=== PATIENT | female | born 1990 | race Caucasian/White ===

== ENCOUNTER → 2018-05-06 08:12 | Outpatient (CLI) | payer OTHER, SELFPAY ==
--- NOTE | 2018-05-06 | DI.MRI.S_ITS ---
PROCEDURE: MR KNEE LT WO CON INDICATIONS: LEFT KNEE PAIN TECHNIQUE: Noncontrast sagittal PD fast spin echo and T2 fast spin echo with fat saturation, sagittal 3-D FLASH with fat saturation; coronal T1 spin echo and PD fast spin echo with fat saturation, and axial PD fast spin echo with fat saturation through the knee. COMPARISON: None. FINDINGS: Image quality: Excellent. Menisci: The medial and lateral menisci demonstrate normal morphology and internal signal. The meniscal root ligaments appear intact. Cruciate ligaments: The anterior and posterior cruciate ligaments appear intact. Medial structures: The medial collateral ligament appears intact. The posterior oblique ligament, semimembranosus tendon insertions, oblique popliteal ligament, and meniscocapsular junction appear intact. Visualized portions of the pes anserinus tendons appear normal. No abnormal bursal fluid. Lateral structures: The lateral collateral ligament, long and short heads of the biceps femoris tendon appear intact. The popliteus tendon appears normal; the popliteofibular ligament appears intact. The posterosuperior and anteroinferior popliteomeniscal fascicles appear intact. The arcuate and fabellofibular ligaments appear intact, on either side of the lateral inferior geniculate artery. Iliotibial band appears normal. Anterior structures: Prepatellar subcutaneous soft tissue swelling and edema. The quadriceps and patellar tendons appear intact. Patellar alignment is normal. No femoral trochlear dysplasia or ventral trochlear prominence. No edema in the infrapatellar fat pad. Bones and cartilage: No bone marrow contusions or fractures. Within the medial and lateral compartments the articular cartilage appears intact. Within the patellofemoral compartment, there is minimal intrasubstance signal change of the cartilage overlying the medial patellar facet. There is minimal surface fraying of the lateral patellar facet articular cartilage. Joint space: Partially ruptured Lares cyst is present measuring 4.4 cm in a cephalocaudad dimension IMPRESSION: Prepatellar subcutaneous fluid/edema raising possibility of early or low-grade bursitis. Partially ruptured Lares cyst as above. Minimal patellofemoral chondromalacia. Dictated by: Guero Cabrales M.D. on 05/06/2018 at 9:07 Approved by: Guero Cabrales M.D. on 05/06/2018 at 9:13
== END ==
PROVIDERS: PCP Radiology Diagnostic Radiology; Visit Provider Radiology Diagnostic Radiology
DX: M25.562 Pain in left knee (principal); M66.0 Rupture of popliteal cyst; R60.0 Localized edema
CPT/HCPCS: 73721

== ENCOUNTER 2018-07-25 08:00 | Emergency (ER) | payer OTHER, SELFPAY ==
[2018-07-25 08:03] VITALS: BP 103/59; PULSE 67; RESP 16; O2SAT 100; BMI 21.6
--- NOTE | 2018-07-25 08:17 | ED.FEMALEGU ---
HPI - Female Genitourinary General Chief complaint: Urogenital-Female Stated complaint: back pain, urine cloudy Time Seen by Provider: 07/25/18 08:17 Source: patient Mode of arrival: ambulatory Limitations: no limitations History of Present Illness HPI Narrative: 28-year-old female otherwise healthy here for evaluation of right-sided flank pain. Patient states that has been going on for the past 2 or 3 days. No specific injury. No rashes. Has never had anything like this before. She states she does feel somewhat like she has urinary symptoms of dysuria. Has not tried anything for this prior to arrival Related Data Previous Rx's Medication Instructions Recorded sulfamethoxazole-trimethoprim 1 tab PO BID 14 Days #28 tab 07/25/18 [Bactrim DS] Allergies Allergy/AdvReac Type Severity Reaction Status Date / Time No Known Drug Allergies Allergy Verified 07/25/18 08:08 Review of Systems Constitutional Denies fever(s) and Denies headache(s) ENT Ears, Nose, Mouth, and Throat: Denies headache(s) Cardiovascular Denies chest pain and Denies dyspnea Respiratory Denies dyspnea Gastrointestinal Gastrointestinal: Denies abdominal pain, Denies nausea and Denies vomiting Genitourinary Reports dysuria, Reports flank pain and Denies vaginal discharge Musculoskeletal Denies myalgias and Denies arthralgias Integumentary/Breasts Denies rash Neurologic Denies headache(s) Hematologic/Lymphatic Comments: Not on anticoagulation PFSH Medical History Healthy adult (Acute) Surgical History No pertinent past surgical history (Acute) Social History Smoking Status: Never smoker Exam Initial Vital Signs Initial Vital Signs: Vital Signs Pulse Rate 67 07/25/18 08:03 Respiratory Rate 16 07/25/18 08:03 Blood Pressure 103/59 L 07/25/18 08:03 Pulse Oximetry 100 07/25/18 08:03 Const General: cooperative, healthy appearing, comfortable, well developed, well groomed and No acute distress Orientation: alert, awake and oriented x3 HENMT Head: normal to inspection and normocephalic Resp Effort & Inspection: normal respiratory effort Auscultation: clear to auscultation bilaterally Cardio Rate: regular rate Rhythm: regular rhythm GI Inspection: non-distended Palpation: soft Back/Spine/Pelvis Back: CVA tenderness right Skin Lesions: no lesions Rashes: no rashes Neuro General: alert, awake and oriented x3 Extrem General: normal to inspection and capillary refill normal Psych Appearance: grossly normal and well kempt Course Orders Ordered: ED Orders 07/25/18 07:35 Urine Culture Stat Urine Microscopic Stat Vital Signs - 8 hr 07/25/18 08:03 Pulse Rate 67 Respiratory Rate 16 Blood Pressure 103/59 L Pulse Oximetry 100 MDM - Female Genitourinary Lab Data Attestation: I reviewed the patient's lab results. Lab Results 07/25/18 Range/Units 07:35 Urine RBC None seen (0-5/HPF) Urine WBC 30-100/hpf H (0-5/HPF) Ur Squamous Epith Cells 0-1 /hpf Urine Bacteria Moderate (10-30) H (None) Ur Culture Indicated? Specimen cultured Micro UA Comment Not Reportable Point of Care Testing Test Results Negative Urine Dip Bedside Urine Glucose Negative Bedside Urine Bilirubin - Negative Bedside Urine Ketone - Negative Urine Specific [place] 1.005 Bedside Urine Occult Blood - Negative Bedside Urine pH 6.0 Bedside Urine Protein - Negative Bedside Urine Urobilinogen - Negative Bedside Urine Nitrite - Negative Bedside Urine Leukocytes +++ 500 Esterase MDM Narrative Medical decision making narrative: test negative. Urinalysis and history consistent with a urinary tract infection. Given the right flank pain there is some concern for an early pyelonephritis. She is afebrile. Not vomiting. Has no abdominal pain. Will send home on antibiotics. I feel a trial of home oral antibiotics is warranted. She does not meet admission criteria today. She was given return precautions. She expressed understanding and agreement with plan. Discharge Plan Departure Patient Disposition: Home Clinical Impression: Pyelonephritis Instructions: DI for Kidney Infection Activity Restrictions/Additional Instructions: Take all the antibiotics as directed. Call your medical department for a follow-up. Return to the emergency department for any new or worsening symptoms Prescriptions: New sulfamethoxazole-trimethoprim [Bactrim DS] 800-160 mg tablet 1 tab PO BID 14 Days Qty: 28 RF: 0
[2018-07-25 08:29] LABS: RBC Urine None Seen (0-5/HPF)
[2018-07-25 08:38] LABS: Bacteria Urine Moderate (10-30); Squamous Epithelial Cell Urine 0-1 /HPF; WBC Urine 30-100/HPF (0-5/HPF)
[2018-07-25 08:39] LABS: Culture Indicated Urine Specimen Cultured
== END 2018-07-25 08:58 | disposition home or self-care (01) ==
PROVIDERS: Emergency Provider Emergency Medicine; PCP Radiology Diagnostic Radiology
DX: N12 Tubulo-interstitial nephritis, not specified as acute or chronic (principal)
CPT/HCPCS: 81003; 81015; 81025; 87077; 87086; 87186; 99282; 99283

== ENCOUNTER 2019-02-23 17:48 | Emergency (ER) | payer OTHER, SELFPAY ==
[2019-02-23 17:54] VITALS: BP 122/69; PULSE 75; RESP 18; TEMP 37.2; O2SAT 100; BMI 21.4
--- NOTE | 2019-02-23 18:20 | ED.ABDPAIN ---
HPI - Abdominal Pain General Chief Complaint: Abdominal Pain Stated Complaint: Lower right abdominal pain Time Seen by Provider: 02/23/19 18:04 Source: patient Mode of arrival: ambulatory Limitations: no limitations History of Present Illness HPI narrative: 28-year-old female nonsmoker with benign medical history presents by herself with a chief complaint of right lower quadrant pain for the past few days. Her pain is worse with motion and improves with rest. She denies any radiation of this pain. She denies associated symptoms such as nausea, vomiting or diarrhea. She has no change in urinary habits such as dysuria, frequency or urgency. She does admit to some decreased bowel movements. She denies any injury or change in diet MD complaint: abdominal pain Onset (ago): day(s) Pain Consistency: intermittent and now resolved Location: RLQ Severity: moderate Quality: cramping and aching Radiation: none Migration to: no migration Relieving factors: rest Exacerbating factors: movement Associated symptoms: denies other symptoms Related Data Patient : No Allergies Allergy/AdvReac Type Severity Reaction Status Date / Time No Known Drug Allergies Allergy Verified 07/25/18 08:08 Review of Systems Constitutional Denies chills, Denies fever(s), Denies lethargy and Denies weakness Eyes Denies change in vision, Denies eye discharge, Denies irritation and Denies loss of vision ENT Ears, Nose, Mouth, and Throat: Denies change in voice, Denies neck pain and Denies sore throat Cardiovascular Denies chest pain, Denies irregular heart rhythm, Denies lightheadedness, Denies palpitations, Denies dyspnea, Denies dyspnea on exertion and Denies orthopnea Respiratory Denies cough, Denies dyspnea, Denies dyspnea on exertion and Denies wheezing Gastrointestinal Gastrointestinal: Reports abdominal pain, Denies change in bowel habits, Denies diarrhea, Denies nausea and Denies vomiting Genitourinary Denies hematuria, Denies flank pain, Denies urinary incontinence and Denies urinary urgency Musculoskeletal Denies neck pain Integumentary/Breasts Denies pruritus, Denies erythema, Denies rash and Denies wounds Neurologic Denies confusion, Denies loss of vision and Denies weakness Psychiatric Denies anxiety, Denies confusion, Denies depression, Denies homicidal ideation and Denies suicidal ideation Endocrine Denies palpitations Hematologic/Lymphatic Denies easy bruising Allergic/Immunologic Denies wheezing [facility] Medical History Healthy adult (Acute) Surgical History No pertinent past surgical history (Acute) Social History Smoking Status: Current some day smoker Social History Smoking Status: Current some day smoker Exam Narrative Exam Narrative: GENERAL: 28-year-old female appears stated age, resting comfortably but massaging her right lower quadrant HEAD: Atraumatic. Normocephalic. No temporal or scalp tenderness. EYES: Pupils equal round and reactive. Extraocular motions intact. ENT: Nose without bleeding, purulent drainage or septal hematoma. NECK: Trachea midline. No JVD or lymphadenopathy. Supple, nontender, no meningeal signs. CARDIOVASCULAR: Regular rate and rhythm without murmurs, gallops, or rubs. RESPIRATORY: Clear to auscultation. Breath sounds equal bilaterally. No wheezes, rales, or rhonchi. GASTROINTESTINAL: Abdomen soft, tender to palpation in the right lower quadrant, nondistended. No hepato-splenomegaly, or palpable masses. No guarding. EXTREMITIES: No clubbing, cyanosis, or edema. No joint tenderness, effusion, or edema noted. BACK: Nontender without deformity or crepitance. No flank tenderness. NEURO: AOx3. SKIN: No rash or erythema. Initial Vital Signs Initial Vital Signs: Vital Signs Temperature 98.9 F 02/23/19 17:54 Pulse Rate 75 02/23/19 17:54 Respiratory Rate 18 02/23/19 17:54 Blood Pressure 122/69 02/23/19 17:54 Pulse Oximetry 100 02/23/19 17:54 Course Orders Ordered: ED Orders 02/23/19 18:17 Complete Blood Count AUTO DIFF Stat Comprehensive Metabolic Panel Stat Lipase Stat Partial Thromboplastin Time Stat Prothrombin Time INR Stat 02/23/19 19:08 US pelvic complete Stat 02/23/19 21:07 CT abdomen pelvis w con Stat Vital Signs - 8 hr 02/23/19 19:54 02/23/19 22:13 Temperature 98.3 F Pulse Rate 58 L 52 L Respiratory Rate 15 16 Blood Pressure 104/64 Blood Pressure [Left Arm] 109/60 Pulse Oximetry 100 100 MDM - Abdominal Pain Differential Diagnosis Differential diagnosis: Likely abdominal pain Lab Data Result diagrams: 02/23/19 18:17 02/23/19 18:17 Lab Results 02/23/19 02/23/19 02/23/19 Range/Units 18:17 18:17 18:17 WBC 7.0 (4.5-11.0) X10^3/uL RBC 4.08 (4.0-5.2) X10^6/uL Hgb 12.2 (12.0-16.0) g/dL Hct 36.5 (36-46) % MCV 89.4 (80-100) fL MCH 29.9 (26-34) PG MCHC 33.4 (30-36) % RDW 13.7 (11.6-14.8) % Plt Count 327 (150-400) X10^3/uL Neut % (Auto) 66.0 (50-75) % Lymph % (Auto) 26.1 (25-40) % [place] % (Auto) 5.7 (3-14) % Eos % (Auto) 1.4 L (2-4) % Baso % (Auto) 0.8 (0-2) % Neut # (Auto) 4600 (0017-4691) /uL Lymph # (Auto) 1800 (4160-8930) /uL [place] # (Auto) 400 (0-900) /uL Eos # (Auto) 100 (0-450) /uL Baso # (Auto) 100 (0-100) /uL PT 10.8 (10.1-12.7) SECONDS INR 0.9 (0.9-1.3) APTT 29 (26.4-36.2) SECONDS Sodium 142 (137-145) mmol/L Potassium 3.6 (3.4-5.1) mmol/L Chloride 103 (98-107) mmol/L Carbon Dioxide 27 (22-32) mmol/L BUN 9 (7-17) mg/dL Creatinine 0.80 (0.52-1.04) mg/dL Estimated GFR > 60.0 (>60) mL/min BUN/Creatinine Ratio 11.3 (6-22) Glucose 90 (70-100) mg/dL Calcium 9.5 (8.4-10.2) mg/dL Total Bilirubin 0.6 (0.2-1.3) mg/dL AST 26 (14-36) IU/L ALT 19 (9-52) IU/L Alkaline Phosphatase 47 (38-126) U/L Total Protein 8.6 H (6.3-8.2) g/dL Albumin 4.8 (3.5-5.0) g/dL Globulin 3.8 (1.7-4.1) g/dL Albumin/Globulin Ratio 1.3 (1.0-2.8) Lipase 125 (23-300) U/L Point of care testing: Point of Care Testing Test Results Negative Urine Dip Bedside Urine Glucose Negative Bedside Urine Bilirubin - Negative Bedside Urine Ketone - Negative Urine Specific [place] 1.010 Bedside Urine Occult Blood - Negative Bedside Urine pH 7.5 Bedside Urine Protein - Negative Bedside Urine Urobilinogen - Negative Bedside Urine Nitrite - Negative Bedside Urine Leukocytes - Negative Esterase Imaging Data CT scan - abdomen: Radiologist's impression: [address] [address] [address] Scan Report Signed Patient: Namrata Hoffman CMR#: [id number] : 1990Acct:[id number] Age/Sex: 28 / FDate of Service: 02/23/19 Loc: ED Accession Number: [id number] Procedure: CT abdomen pelvis w con Ordering Provider: Jesus Foster D.O. PROCEDURE: CT ABDOMEN PELVIS W CON INDICATIONS: severe RLQ pain, normal US TECHNIQUE: After the administration of intravenous contrast, 5 mm thick sections acquired from the diaphragm to the symphysis. 5 mm coronal and sagittal reformats were acquired. For radiation dose reduction, the following was used: automated exposure control, adjustment of mA and/or kV according to patient size. COMPARISON: None. FINDINGS: Image quality: Excellent. ABDOMEN: Lung bases: Lung bases are clear. Heart size is normal. Solid organs: Liver is normal in size and enhancement. Gallbladder is decompressed, but otherwise unremarkable. Biliary system is non dilated. Pancreas enhances normally. Spleen is normal in size and enhancement. No adrenal nodules. Kidneys demonstrate normal size and enhancement, without hydronephrosis. Peritoneum and bowel: Bowel loops demonstrate normal wall thickness and caliber. There is a large amount of fecal material noted throughout the colon, most pronounced in the cecum, ascending colon and transverse colon. The appendix is not definitively visualized but no secondary findings of acute inflammation. Numerous fluid filled loops of small bowel without distention. Overall, difficult to evaluate bowel secondary to closely approximated bowel loops as well as paucity of intraperitoneal fat and lack of oral contrast. No lymphadenopathy. No pathologic pelvic free fluid. Small amount of free fluid noted in the pelvis, likely physiologic. No free air. Nodes and vessels: No retroperitoneal or mesenteric adenopathy by size criteria. Aorta and inferior vena cava are normal in size. Miscellaneous: No ventral hernias. PELVIS: Genitourinary: Urinary bladder is decompressed. Miscellaneous: No inguinal hernias or adenopathy. Bones: No suspicious bony lesions. No vertebral body compression fractures. IMPRESSION: 1. No acute abnormalities identified in the abdomen or pelvis. 2. The appendix was not definitively visualized but no secondary findings of acute inflammation identified in the right lower quadrant. 3. A large amount of fecal material within the colon most pronounced in the cecum, ascending colon and transverse colon. Findings may be related to constipation. 4. Very small amount of pelvic free fluid likely physiologic. Dictated by: Ja Grigsby M.D. on 02/23/2019 at 21:38 Approved by: Ja Grigsby M.D. on 02/23/2019 at 21:49 US - abdomen: Radiologist's impression: [place] [address] Ultrasound Report Signed Patient: Namrata Hoffman CMR#: [id number] : 1990Acct:[id number] Age/Sex: 28 / FDate of Service: 02/23/19 Loc: ED Accession Number: [id number] Procedure: US pelvic complete Ordering Provider: Jesus Foster D.O. PROCEDURE: US PELVIC COMPLETE INDICATIONS: RIGHT LOWER QUADRANT PAIN TECHNIQUE: Real-time scanning was performed of the pelvic organs, with image documentation. Additional endovaginal scanning was necessary due to incomplete visualization of the adnexal and endometrial structures by transabdominal scanning. COMPARISON: None. FINDINGS: Transabdominal scanning: Limited scanning through the kidneys shows no hydronephrosis. No pathologic free abdominal or pelvic fluid. Endovaginal scanning: Uterus: Uterus is normal in size at 7.9 x 3.2 x 5.1 cm. The endometrium measures 8 mm in combined thickness. Ovaries: Both ovaries are normal in sonographic appearance. Right ovary measures 2.0 x 1.8 x 2.4 cm. Left ovary measures 2.3 x 1.2 x 1.5 cm. No ovarian or adnexal mass lesions. Other findings: No pathologic pelvic free fluid. The appendix was not visualized sonographically. IMPRESSION: 1. Pelvic ultrasound without acute sonographic abnormalities. 2. The appendix was not visualized sonographically. If there is persistent high clinical concern for acute appendicitis, consider further evaluation with CT. Dictated by: Ja Grigsby M.D. on 02/23/2019 at 20:32 Approved by: Ja Grigsby M.D. on 02/23/2019 at 20:35 [facility] Narrative Medical decision making narrative: Multiple etiologies for patient's symptoms considered including: [Kidney stone versus appendicitis versus ovarian cyst versus ovarian torsion versus musculoskeletal versus other] Patient's symptoms improved or duration of stay with above-stated therapies. Findings and discharge diagnosis discussed with patient/family followed by verbalization of understanding Return precautions discussed with patient/family whom verbalize understanding. Discharge Plan Departure Patient Disposition: Home Clinical Impression: Abdominal pain Qualifiers: Abdominal location: right lower quadrant Qualified Code(s): R10.31 - Right lower quadrant pain Discharge Date/Time: 02/23/19 22:15 Interventions: ED Discharge Assessment Last Done: 02/23/19 22:13 Instructions: DI for Abdominal Pain-Adult Activity Restrictions/Additional Instructions: *You have been diagnosed with [acute right lower quadrant pain. Kidney stone, appendicitis, and ovarian cysts were considered but not seen on imaging or lab work] *What to do: *Take medications as directed *Follow up with your primary care provider in 2-3 days, call for an appointment. Let them know you were seen in the Emergency Department and that we ask that you be seen in follow up *Return to ER if you should have any new, worsening or concerning symptoms, such as [worsening pain, fever over 101 F, chills, vaginal bleeding or discharge or other bothersome symptoms] Referrals: Deandre Ozuna [Primary Care Provider] -
[2019-02-23 18:28] LABS: Add Manual Diff / Slide Review NO; Basophils Absolute Auto 100 /uL (0-100); Basophils Percent Auto 0.8 % (0-2); Eosinophils Absolute Auto 100 /uL (0-450); Eosinophils Percent Auto 1.4 % (2-4); Hematocrit 36.5 % (36-46); Hemoglobin 12.2 g/dL (12.0-16.0); Lymphocytes Absolute Auto 1800 /uL (1100-4500); Lymphocytes Percent Auto 26.1 % (25-40); Mean Corpuscular HGB Conc 33.4 % (30-36); Mean Corpuscular Hemoglobin 29.9 PG (26-34); Mean Corpuscular Volume 89.4 fL (80-100); Monocytes Absolute Auto 400 /uL (0-900); Monocytes Percent Auto 5.7 % (3-14); Neutrophils Absolute Auto 4600 /uL (1500-7000); Platelet Count 327 X10^3/uL (150-400); Red Blood Cell Count 4.08 X10^6/uL (4.0-5.2); Red Cell Distribution Width 13.7 % (11.6-14.8)
[2019-02-23 18:33] LABS: INR 0.9 (0.9-1.3); Prothrombin Time 10.8 SECONDS (10.1-12.7)
[2019-02-23 18:36] LABS: PTT Partial Thromboplastin Tim 29 SECONDS (26.4-36.2)
[2019-02-23 18:38] LABS: Alanine Aminotransferase 19 IU/L (9-52); Albumin 4.8 g/dL (3.5-5.0); Albumin Globulin Ratio 1.3 (1.0-2.8); Alkaline Phosphatase 47 U/L (38-126); Aspartate Aminotransferase 26 IU/L (14-36); BUN Creatinine Ratio 11.3 (6-22); Bilirubin Total 0.6 mg/dL (0.2-1.3); Blood Urea Nitrogen 9 mg/dL (7-17); Calcium 9.5 mg/dL (8.4-10.2); Carbon Dioxide 27 mmol/L (22-32); Chloride 103 mmol/L (98-107); Estimated Glomerular Filt Rate > 60.0 mL/min (>60); Globulin 3.8 g/dL (1.7-4.1); Glucose 90 mg/dL (70-100); HEMOLYSIS < 15 (0-50); Lipase 125 U/L (23-300); Potassium 3.6 mmol/L (3.4-5.1); Sodium 142 mmol/L (137-145); Total Protein 8.6 g/dL (6.3-8.2)
--- NOTE | 2019-02-23 19:08 | DI.US.S_ITS ---
PROCEDURE: US PELVIC COMPLETE INDICATIONS: RIGHT LOWER QUADRANT PAIN TECHNIQUE: Real-time scanning was performed of the pelvic organs, with image documentation. Additional endovaginal scanning was necessary due to incomplete visualization of the adnexal and endometrial structures by transabdominal scanning. COMPARISON: None. FINDINGS: Transabdominal scanning: Limited scanning through the kidneys shows no hydronephrosis. No pathologic free abdominal or pelvic fluid. Endovaginal scanning: Uterus: Uterus is normal in size at 7.9 x 3.2 x 5.1 cm. The endometrium measures 8 mm in combined thickness. Ovaries: Both ovaries are normal in sonographic appearance. Right ovary measures 2.0 x 1.8 x 2.4 cm. Left ovary measures 2.3 x 1.2 x 1.5 cm. No ovarian or adnexal mass lesions. Other findings: No pathologic pelvic free fluid. The appendix was not visualized sonographically. IMPRESSION: 1. Pelvic ultrasound without acute sonographic abnormalities. 2. The appendix was not visualized sonographically. If there is persistent high clinical concern for acute appendicitis, consider further evaluation with CT. Dictated by: Ja Grigsby M.D. on 02/23/2019 at 20:32 Approved by: Ja Grigsby M.D. on 02/23/2019 at 20:35
[2019-02-23 19:54] VITALS: BP 109/60; PULSE 58; RESP 15; O2SAT 100
--- NOTE | 2019-02-23 21:07 | DI.CT.S_ITS ---
PROCEDURE: CT ABDOMEN PELVIS W CON INDICATIONS: severe RLQ pain, normal US TECHNIQUE: After the administration of intravenous contrast, 5 mm thick sections acquired from the diaphragm to the symphysis. 5 mm coronal and sagittal reformats were acquired. For radiation dose reduction, the following was used: automated exposure control, adjustment of mA and/or kV according to patient size. COMPARISON: None. FINDINGS: Image quality: Excellent. ABDOMEN: Lung bases: Lung bases are clear. Heart size is normal. Solid organs: Liver is normal in size and enhancement. Gallbladder is decompressed, but otherwise unremarkable. Biliary system is non dilated. Pancreas enhances normally. Spleen is normal in size and enhancement. No adrenal nodules. Kidneys demonstrate normal size and enhancement, without hydronephrosis. Peritoneum and bowel: Bowel loops demonstrate normal wall thickness and caliber. There is a large amount of fecal material noted throughout the colon, most pronounced in the cecum, ascending colon and transverse colon. The appendix is not definitively visualized but no secondary findings of acute inflammation. Numerous fluid filled loops of small bowel without distention. Overall, difficult to evaluate bowel secondary to closely approximated bowel loops as well as paucity of intraperitoneal fat and lack of oral contrast. No lymphadenopathy. No pathologic pelvic free fluid. Small amount of free fluid noted in the pelvis, likely physiologic. No free air. Nodes and vessels: No retroperitoneal or mesenteric adenopathy by size criteria. Aorta and inferior vena cava are normal in size. Miscellaneous: No ventral hernias. PELVIS: Genitourinary: Urinary bladder is decompressed. Miscellaneous: No inguinal hernias or adenopathy. Bones: No suspicious bony lesions. No vertebral body compression fractures. IMPRESSION: 1. No acute abnormalities identified in the abdomen or pelvis. 2. The appendix was not definitively visualized but no secondary findings of acute inflammation identified in the right lower quadrant. 3. A large amount of fecal material within the colon most pronounced in the cecum, ascending colon and transverse colon. Findings may be related to constipation. 4. Very small amount of pelvic free fluid likely physiologic. Dictated by: Ja Grigsby M.D. on 02/23/2019 at 21:38 Approved by: Ja Grigsby M.D. on 02/23/2019 at 21:49
--- NOTE | 2019-02-23 22:02 | ED_ITS ---
HPI - Abdominal Pain General Chief Complaint: Abdominal Pain Stated Complaint: Lower right abdominal pain Time Seen by Provider: 02/23/19 18:04 Source: patient Mode of arrival: ambulatory Limitations: no limitations History of Present Illness HPI narrative: 28-year-old female nonsmoker with benign medical history presents by herself with a chief complaint of right lower quadrant pain for the past few days. Her pain is worse with motion and improves with rest. She denies any radiation of this pain. She denies associated symptoms such as nausea, vomiting or diarrhea. She has no change in urinary habits such as dysuria, frequency or urgency. She does admit to some decreased bowel movements. She denies any injury or change in diet MD complaint: abdominal pain Onset (ago): day(s) Pain Consistency: intermittent and now resolved Location: RLQ Severity: moderate Quality: cramping and aching Radiation: none Migration to: no migration Relieving factors: rest Exacerbating factors: movement Associated symptoms: denies other symptoms Related Data Patient : No Allergies Allergy/AdvReac Type Severity Reaction Status Date / Time No Known Drug Allergies Allergy Verified 07/25/18 08:08 Review of Systems Constitutional Denies chills, Denies fever(s), Denies lethargy and Denies weakness Eyes Denies change in vision, Denies eye discharge, Denies irritation and Denies loss of vision ENT Ears, Nose, Mouth, and Throat: Denies change in voice, Denies neck pain and D enies sore throat Cardiovascular Denies chest pain, Denies irregular heart rhythm, Denies lightheadedness, Denies palpitations, Denies dyspnea, Denies dyspnea on exertion and Denies orthopnea Respiratory Denies cough, Denies dyspnea, Denies dyspnea on exertion and Denies wheezing Gastrointestinal Gastrointestinal: Reports abdominal pain, Denies change in bowel habits, Denies diarrhea, Denies nausea and Denies vomiting Genitourinary Denies hematuria, Denies flank pain, Denies urinary incontinence and Denies urinary urgency Musculoskeletal Denies neck pain Integumentary/Breasts Denies pruritus, Denies erythema, Denies rash and Denies wounds Neurologic Denies confusion, Denies loss of vision and Denies weakness Psychiatric Denies anxiety, Denies confusion, Denies depression, Denies homicidal ideation and Denies suicidal ideation Endocrine Denies palpitations Hematologic/Lymphatic Denies easy bruising Allergic/Immunologic Denies wheezing [facility] Medical History Healthy adult (Acute) Surgical History No pertinent past surgical history (Acute) Social History Smoking Status: Current some day smoker Social History Smoking Status: Current some day smoker Exam Narrative Exam Narrative: GENERAL: 28-year-old female appears stated age, resting comfortably but massaging her right lower quadrant HEAD: Atraumatic. Normocephalic. No temporal or scalp tenderness. EYES: Pupils equal round and reactive. Extraocular motions intact. ENT: Nose without bleeding, purulent drainage or septal hematoma. NECK: Trachea midline. No JVD or lymphadenopathy. Supple, nontender, no meningeal signs. CARDIOVASCULAR: Regular rate and rhythm without murmurs, gallops, or rubs. RESPIRATORY: Clear to auscultation. Breath sounds equal bilaterally. No wheezes, rales, or rhonchi. GASTROINTESTINAL: Abdomen soft, tender to palpation in the right lower quadrant, nondistended. No hepato-splenomegaly, or palpable masses. No guarding. EXTREMITIES: No clubbing, cyanosis, or edema. No joint tenderness, effusion, or edema noted. BACK: Nontender without deformity or crepitance. No flank tenderness. NEURO: AOx3. SKIN: No rash or erythema. Initial Vital Signs Initial Vital Signs: Vital Signs Temperature 98.9 F 02/23/19 17:54 Pulse Rate 75 02/23/19 17:54 Respiratory Rate 18 02/23/19 17:54 Blood Pressure 122/69 02/23/19 17:54 Pulse Oximetry 100 02/23/19 17:54 Course Orders Ordered: ED Orders 02/23/19 18:17 Complete Blood Count AUTO DIFF Stat Comprehensive Metabolic Panel Stat Lipase Stat Partial Thromboplastin Time Stat Prothrombin Time INR Stat 02/23/19 19:08 US pelvic complete Stat 02/23/19 21:07 CT abdomen pelvis w con Stat Vital Signs - 8 hr 02/23/19 19:54 02/23/19 22:13 Temperature 98.3 F Pulse Rate 58 L 52 L Respiratory Rate 15 16 Blood Pressure 104/64 Blood Pressure [Left Arm] 109/60 Pulse Oximetry 100 100 MDM - Abdominal Pain Differential Diagnosis Differential diagnosis: Likely abdominal pain Lab Data Result diagrams: 02/23/19 18:17 02/23/19 18:17 Lab Results 02/23/19 02/23/19 02/23/19 Range/Units 18:17 18:17 18:17 WBC 7.0 (4.5-11.0) X10^3/uL RBC 4.08 (4.0-5.2) X10^6/uL Hgb 12.2 (12.0-16.0) g/dL Hct 36.5 (36-46) % MCV 89.4 (80-100) fL MCH 29.9 (26-34) PG MCHC 33.4 (30-36) % RDW 13.7 (11.6-14.8) % Plt Count 327 (150-400) X10^3/uL Neut % (Auto) 66.0 (50-75) % Lymph % (Auto) 26.1 (25-40) % Lawrence % (Auto) 5.7 (3-14) % Eos % (Auto) 1.4 L (2-4) % Baso % (Auto) 0.8 (0-2) % Neut # (Auto) 4600 (5222-8976) /uL Lymph # (Auto) 1800 (9413-4277) /uL Lawrence # (Auto) 400 (0-900) /uL Eos # (Auto) 100 (0-450) /uL Baso # (Auto) 100 (0-100) /uL PT 10.8 (10.1-12.7) SECONDS INR 0.9 (0.9-1.3) APTT 29 (26.4-36.2) SECONDS Sodium 142 (137-145) mmol/L Potassium 3.6 (3.4-5.1) mmol/L Chloride 103 (98-107) mmol/L Carbon Dioxide 27 (22-32) mmol/L BUN 9 (7-17) mg/dL Creatinine 0.80 (0.52-1.04) mg/dL Estimated GFR > 60.0 (>60) mL/min BUN/Creatinine Ratio 11.3 (6-22) Glucose 90 (70-100) mg/dL Calcium 9.5 (8.4-10.2) mg/dL Total Bilirubin 0.6 (0.2-1.3) mg/dL AST 26 (14-36) IU/L ALT 19 (9-52) IU/L Alkaline Phosphatase 47 (38-126) U/L Total Protein 8.6 H (6.3-8.2) g/dL Albumin 4.8 (3.5-5.0) g/dL Globulin 3.8 (1.7-4.1) g/dL Albumin/Globulin Ratio 1.3 (1.0-2.8) Lipase 125 (23-300) U/L Point of care testing: Point of Care Testing Test Results Negative Urine Dip Bedside Urine Glucose Negative Bedside Urine Bilirubin - Negative Bedside Urine Ketone - Negative Urine Specific [place] 1.010 Bedside Urine Occult Blood - Negative Bedside Urine pH 7.5 Bedside Urine Protein - Negative Bedside Urine Urobilinogen - Negative Bedside Urine Nitrite - Negative Bedside Urine Leukocytes - Negative Esterase Imaging Data CT scan - abdomen: Radiologist's impression: [address] [address] [address] Scan Report Signed Patient: Namrata Hoffman CMR#: [id number] : 1990Acct:[id number] Age/Sex: 28 / FDate of Service: 02/23/19 Loc: ED Accession Number: [id number] Procedure: CT abdomen pelvis w con Ordering Provider: Jesus Foster D.O. PROCEDURE: CT ABDOMEN PELVIS W CON INDICATIONS: severe RLQ pain, normal US TECHNIQUE: After the administration of intravenous contrast, 5 mm thick sections acquired from the diaphragm to the symphysis. 5 mm coronal and sagittal reformats were acquired. For radiation dose reduction, the following was used: automated exposure control, adjustment of mA and/or kV according to patient size. COMPARISON: None. FINDINGS: Image quality: Excellent. ABDOMEN: Lung bases: Lung bases are clear. Heart size is normal. Solid organs: Liver is normal in size and enhancement. Gallbladder is decompressed, but otherwise unremarkable. Biliary system is non dilated. Pancreas enhances normally. Spleen is normal in size and enhancement. No adrenal nodules. Kidneys demonstrate normal size and enhancement, without hydronephrosis. Peritoneum and bowel: Bowel loops demonstrate normal wall thickness and caliber. There is a large amount of fecal material noted throughout the colon, most pronounced in the cecum, ascending colon and transverse colon. The appendix is not definitively visualized but no secondary findings of acute inflammation. Numerous fluid filled loops of small bowel without distention. Overall, difficult to evaluate bowel secondary to closely approximated bowel loops as well as paucity of intraperitoneal fat and lack of oral contrast. No lymphadenopathy. No pathologic pelvic free fluid. Small amount of free fluid noted in the pelvis, likely physiologic. No free air. Nodes and vessels: No retroperitoneal or mesenteric adenopathy by size criteria. Aorta and inferior vena cava are normal in size. Miscellaneous: No ventral hernias. PELVIS: Genitourinary: Urinary bladder is decompressed. Miscellaneous: No inguinal hernias or adenopathy. Bones: No suspicious bony lesions. No vertebral body compression fractures. IMPRESSION: 1. No acute abnormalities identified in the abdomen or pelvis. 2. The appendix was not definitively visualized but no secondary findings of acute inflammation identified in the right lower quadrant. 3. A large amount of fecal material within the colon most pronounced in the cecum, ascending colon and transverse colon. Findings may be related to constipation. 4. Very small amount of pelvic free fluid likely physiologic. Dictated by: Ja Grigsby M.D. on 02/23/2019 at 21:38 Approved by: Ja Grigsby M.D. on 02/23/2019 at 21:49 US - abdomen: Radiologist's impression: [place] [address] Ultrasound Report Signed Patient: Namrata Hoffman CMR#: [id number] : 1990Acct:[id number] Age/Sex: 28 / FDate of Service: 02/23/19 Loc: ED Accession Number: [id number] Procedure: US pelvic complete Ordering Provider: Jesus Foster D.O. PROCEDURE: US PELVIC COMPLETE INDICATIONS: RIGHT LOWER QUADRANT PAIN TECHNIQUE: Real-time scanning was performed of the pelvic organs, with image documentation. Additional endovaginal scanning was necessary due to incomplete visualization of the adnexal and endometrial structures by transabdominal scanning. COMPARISON: None. FINDINGS: Transabdominal scanning: Limited scanning through the kidneys shows no hydronephrosis. No pathologic free abdominal or pelvic fluid. Endovaginal scanning: Uterus: Uterus is normal in size at 7.9 x 3.2 x 5.1 cm. The endometrium measures 8 mm in combined thickness. Ovaries: Both ovaries are normal in sonographic appearance. Right ovary measures 2.0 x 1.8 x 2.4 cm. Left ovary measures 2.3 x 1.2 x 1.5 cm. No ovarian or adnexal mass lesions. Other findings: No pathologic pelvic free fluid. The appendix was not visualized sonographically. IMPRESSION: 1. Pelvic ultrasound without acute sonographic abnormalities. 2. The appendix was not visualized sonographically. If there is persistent high clinical concern for acute appendicitis, consider further evaluation with CT. Dictated by: Ja Grigsby M.D. on 02/23/2019 at 20:32 Approved by: Ja Grigsby M.D. on 02/23/2019 at 20:35 [facility] Narrative Medical decision making narrative: Multiple etiologies for patient's symptoms considered including: [Kidney stone versus appendicitis versus ovarian cyst versus ovarian torsion versus musculoskeletal versus other] Patient's symptoms improved or duration of stay with above-stated therapies. Findings and discharge diagnosis discussed with patient/family followed by veronica balization of understanding Return precautions discussed with patient/family whom verbalize understanding. Discharge Plan Departure Patient Disposition: Home Clinical Impression: Abdominal pain Qualifiers: Abdominal location: right lower quadrant Qualified Code(s): R10.31 - Right lower quadrant pain Discharge Date/Time: 02/23/19 22:15 Interventions: ED Discharge Assessment Last Done: 02/23/19 22:13 Instructions: DI for Abdominal Pain-Adult Activity Restrictions/Additional Instructions: *You have been diagnosed with [acute right lower quadrant pain. Kidney stone, appendicitis, and ovarian cysts were considered but not seen on imaging or lab work] *What to do: *Take medications as directed *Follow up with your primary care provider in 2-3 days, call for an appointment. Let them know you were seen in the Emergency Department and that we ask that you be seen in follow up *Return to ER if you should have any new, worsening or concerning symptoms, such as [worsening pain, fever over 101 F, chills, vaginal bleeding or discharge or other bothersome symptoms] Referrals: Deandre Ozuna [Primary Care Provider] -
[2019-02-23 22:13] VITALS: BP 104/64; PULSE 52; RESP 16; TEMP 36.8; O2SAT 100
== END 2019-02-23 22:15 | disposition home or self-care (01) ==
PROVIDERS: Emergency Provider Emergency Medicine; PCP Radiology Diagnostic Radiology
DX: R10.31 Right lower quadrant pain (principal)
CPT/HCPCS: 36591; 74177; 76830; 76856; 80053; 81003; 81025; 83690; 85025; 85610; 85730; 99282; 99284; Q9967

== ENCOUNTER → 2022-05-24 15:54 | Outpatient (CLI) | payer OTHER, SELFPAY ==
[2022-05-24 19:05] LABS: COVID19 -Nasal RAPID Negative (Negative)
== END ==
PROVIDERS: Referring Provider Internal Medicine; Visit Provider Internal Medicine
DX: Z20.822 Contact with and (suspected) exposure to COVID-19 (principal)
CPT/HCPCS: 87635; C9803

== ENCOUNTER → 2022-05-25 15:16 | Outpatient (CLI) | payer OTHER, SELFPAY ==
--- NOTE | 2022-05-31 10:18 | PM.PFT.1 ---
Pulmonary Function Test Referral & Results Date Patient Seen: 05/25/22 Requesting provider: Edgar Ascencio Results: The spirometry demonstrates an FVC of 3.66 L which is 96% of predicted. The FEV1 was measured at 3.13 L which is 98% of predicted. The FEV1/FVC ratio was 85 which is 101% of predicted. Following the administration of bronchodilator there was no notable change to above normal numbers. Interpretation: This study which was done as forced spirometry alone should be considered normal
== END ==
PROVIDERS: Referring Provider Student in an Organized Health Care Education/Training Program; Visit Provider Student in an Organized Health Care Education/Training Program
DX: R06.09 Other forms of dyspnea (principal); Z87.891 Personal history of nicotine dependence
CPT/HCPCS: 94060

== ENCOUNTER 2023-06-15 06:54 | Emergency (ER) | payer OTHER, SELFPAY ==
[2023-06-15 07:09] VITALS: BP 129/87; PULSE 86; RESP 18; TEMP 36.7; O2SAT 98; BMI 21.6
[2023-06-15] MEDS: KETOROLAC 30 MG/ML VIAL IM (07:36)
[2023-06-15] MEDS: OXYCODONE/ACETAMINOPHEN 5/325 TABLET 1 TAB PO (07:36)
[2023-06-15] MEDS: CYCLOBENZAPRINE 10 MG TABLET PO (07:36)
--- NOTE | 2023-06-15 07:48 | ED_ITS ---
HPI - Back Pain/Injury General Chief Complaint: Back Pain/Injury Stated Complaint: back spasms Time Seen by Provider: 06/15/23 07:22 Source: patient History of Present Illness HPI Narrative: 33-year-old female with a history of back pain and no prior surgeries com plaining of low back pain radiating down into her right leg noticed that this morning, she did do a little heavy lifting yesterday. She does not have any problems with urination does not have any urinary symptoms does not had any fevers does not use injection drugs. Had 1 hydrocodone that she took at home from a previous prescription did not relieve her pain. Describing spasmodic pain with movement. Related Data Previous Rx's Medication Instructions Recorded cyclobenzaprine 5 mg tablet 5 mg PO TID PRN muscle spasm #20 06/15/23 tabs hydrocodone 5 mg-acetaminophen 325 1 tab PO Q6H PRN pain #7 tabs 06/15/23 mg tablet methylprednisolone 4 mg tablets in See Rx Instructions PO .COMPLEX 06/15/23 a dose pack (Methylpred DP) #21 ea Allergies Allergy/AdvReac Type Severity Reaction Status Date / Time No Known Drug Allergies Allergy Verified 06/15/23 07:14 Patient History Medical History (Updated 06/15/23 @ 08:34 by Guy Singh MD) Healthy adult Surgical History No pertinent past surgical history Social History Smoking Status: Former smoker Smoking Status: Former smoker alcohol intake frequency: a few times a week Substance Use Type: does not use Exam Initial Vital Signs Initial Vital Signs: Vital Signs Temperature 98.1 F 06/15/23 07:09 Pulse Rate 86 06/15/23 07:09 Respiratory Rate 18 06/15/23 07:09 Blood Pressure 129/87 06/15/23 07:09 Pulse Oximetry 98 06/15/23 07:09 Oxygen Delivery Method Room Air 06/15/23 07:09 Const Other: Alert appears to be uncomfortable Neck Other: Supple Resp Effort & Inspection: normal respiratory effort Cardio Rate: regular rate Back/Spine/Pelvis Other: No focal tenderness of the lumbar spine, there is some paraspinal spasm in the lumbar spine. Skin General: no rashes or lesions noted Neuro Cranial Nerves: CN's II-XI intact bilaterally Motor: strength 5/5 throughout Sensory Exam: no sensory deficits noted DTR's: Rt Patellar: 2+ and Lt Patellar: 2+ Course Orders Ordered: Discontinued Medications Cyclobenzaprine HCl (Cyclobenzaprine 10 Mg Tablet) 10 mg PO NOW ONE Stop: 06/15/23 07:29 Last Admin: 06/15/23 07:36 Dose: 10 mg Documented By: GÓMEZ Ketorolac Tromethamine (Ketorolac 30 Mg/Ml Vial) 30 mg IM NOW ONE Stop: 06/15/23 07:29 Last Admin: 06/15/23 07:36 Dose: 30 mg Documented By: GÓMEZ Oxycodone/Acetaminophen (Oxycodone/Acetaminophen 5/325 Tablet) 1 tab PO NOW ONE Stop: 06/15/23 07:29 Last Admin: 06/15/23 07:36 Dose: 1 tab Documented By: GÓMEZ Reevaluation(s) Reevaluation #1: Patient is improved after ketorolac and 5 mg of oxycodone Vital Signs Vital signs: Vital Signs - 8 hr 06/15/23 07:09 Temperature 98.1 F Pulse Rate 86 Respiratory Rate 18 Blood Pressure 129/87 Pulse Oximetry 98 Oxygen Delivery Method Room Air MDM - Back Pain/Injury MDM Narrative Medical decision making narrative: 33-year-old female with low back pain and no red flag features. Improved with ketorolac, discharged on a methylprednisolone Dosepak cyclobenzaprine and a prescription for just a few hydrocodone. She is to follow up with her primary care provider soon Discharge Plan Departure Patient Disposition: Home Clinical Impression: Strain of lumbar region Qualifiers: Encounter type: initial encounter Qualified Code(s): S39.012A - Strain of muscle, fascia and tendon of lower back, initial encounter Instructions: DI for Back Spasm Activity Restrictions/Additional Instructions: No heavy lifting or bending for a week, off work x5 days Prescriptions: New hydrocodone-acetaminophen 5-325 mg tablet 1 tab PO Q6H PRN (Reason: pain) Qty: 7 0RF methylprednisolone [Methylpred DP] 4 mg tablets,dose pack See Rx Instructions .ROUTE .COMPLEX Qty: 21 0RF Rx Instructions: orally per package directions cyclobenzaprine 5 mg tablet 5 mg PO TID PRN (Reason: muscle spasm) Qty: 20 0RF Referrals: ProviderMichael [Primary Care Provider] - Stand Alone Forms: Patient Portal/API, Work Release Note
[2023-06-15 08:40] VITALS: BP 132/78; PULSE 84; RESP 16; TEMP 36.7; O2SAT 98
== END 2023-06-15 08:41 | disposition home or self-care (01) ==
PROVIDERS: Emergency Provider Emergency Medicine
DX: S39.012A Strain of muscle, fascia and tendon of lower back, initial encounter (principal); X50.0XXA Overexertion from strenuous movement or load, initial encounter
CPT/HCPCS: 96372; 99283; J1885

== ENCOUNTER 2023-07-24 09:57 | Emergency (ER) | payer OTHER, SELFPAY ==
[2023-07-24 10:08] VITALS: BP 127/74; PULSE 88; RESP 20; TEMP 36.5; O2SAT 100; BMI 21.6
--- NOTE | 2023-07-24 10:18 | DI.RAD.S_ITS ---
PROCEDURE: XR CHEST 2V INDICATIONS: asthma, flu like symptoms TECHNIQUE: 2 views of the chest were acquired. COMPARISON: None. FINDINGS: Surgical changes and devices: None. Lungs and pleura: Lungs are clear. No pleural effusions or pneumothorax. Mediastinum: Mediastinal contours are normal. Heart size is normal. Bones and chest wall: No suspicious bony abnormalities. Soft tissues appear unremarkable. IMPRESSION: No acute cardiopulmonary abnormality is seen. Dictated by: Rachell Diaz M.D. on 07/24/2023 at 11:03 Approved by: Rachell Diaz M.D. on 07/24/2023 at 11:03
[2023-07-24 11:11] LABS: Adenovirus Not Detected (Not Detect); B. parapertussis Not Detected (Not Detecte); Bordetella pertussis Not Detected (Not Detect); Chlamydophila pneumoniae Not Detected (Not Detect); Coronavirus 229E Not Detected (Not Detect); Coronavirus HKU1 Not Detected (Not Detect); Coronavirus NL 63 Not Detected (Not Detect); Coronavirus OC43 Not Detected (Not Detect); Human Metapneumovirus Not Detected (Not Detect); Human Rhinovirus/Enterovirus Not Detected (Not Detect); Influenza A Not Detected (Not Detect); Influenza B Not Detected (Not Detect); Mycoplasma pneumoniae Not Detected (Not Detect); Parainfluenza Virus 1 Not Detected (Not Detect); Parainfluenza Virus 2 Not Detected (Not Detect); Parainfluenza Virus 3 Not Detected (Not Detect); Parainfluenza Virus 4 Not Detected (Not Detect); Respiratory Syncytial Virus Detected (Not Detect); SARS- CoV-2 Not Detected (Not Detecte)
--- NOTE | 2023-07-24 11:18 | ED.URI ---
HPI - URI/Sore Throat <Lakia Smith PA-C - Last Filed: 07/24/23 11:30> General Chief Complaint: Upper Respiratory Symptoms Stated Complaint: Cough and wheezing Time Seen by Provider: 07/24/23 11:05 Source: patient Mode of arrival: Ambulatory History of Present Illness HPI Narrative: 33-year-old female with past medical history asthma presents to the ED with 2 weeks of cough and URI symptoms. Patient reports intermittent subjective fevers, cough. Denies chills, shortness of breath, chest pain, nausea, vomiting, diarrhea. Patient has been taking Delsym without much relief. Related Data Previous Rx's Medication Instructions Recorded cyclobenzaprine 5 mg tablet 5 mg PO TID PRN muscle spasm #20 06/15/23 tabs hydrocodone 5 mg-acetaminophen 325 1 tab PO Q6H PRN pain #7 tabs 06/15/23 mg tablet methylprednisolone 4 mg tablets in See Rx Instructions PO .COMPLEX 06/15/23 a dose pack (Methylpred DP) #21 ea benzonatate 200 mg capsule 200 mg PO TID PRN cough #30 caps 07/24/23 Allergies Allergy/AdvReac Type Severity Reaction Status Date / Time No Known Drug Allergies Allergy Verified 06/15/23 07:14 Review of Systems <Lakia Smith PA-C - Last Filed: 07/24/23 11:30> Constitutional Constitutional: Denies chills, Denies fatigue, Reports fever(s), Denies frequent falls, Denies lethargy and Denies weakness Eyes Eyes: Denies change in vision, Denies eye discharge, Denies irritation and Denies loss of vision ENT Ears, Nose, Mouth, and Throat: Denies change in voice, Denies dizziness, Denies neck pain, Denies sore throat and Denies throat swelling Cardiovascular Cardiovascular: Denies chest pain, Denies irregular heart rhythm, Denies lightheadedness, Denies palpitations, Denies dyspnea, Denies dyspnea on exertion and Denies orthopnea Respiratory Respiratory: Reports cough, Denies dyspnea, Denies dyspnea on exertion and Denies wheezing Gastrointestinal Gastrointestinal: Denies abdominal pain, Denies change in bowel habits, Denies diarrhea, Denies nausea and Denies vomiting Musculoskeletal Musculoskeletal: Denies neck pain and Denies numbness Integumentary/Breasts Skin/Breast: Denies pruritus, Denies erythema, Denies rash and Denies wounds Neurologic Neurologic: Denies behavioral changes, Denies confusion, Denies dizziness, Denies frequent falls, Denies loss of vision, Denies numbness and Denies weakness Psychiatric Psychiatric: Denies anxiety, Denies behavioral changes, Denies confusion, Denies depression, Denies homicidal ideation and Denies suicidal ideation Endocrine Endocrine: Denies fatigue, Denies flushing and Denies palpitations Hematologic/Lymphatic Hematologic/Lymphatic: Denies easy bruising Allergic/Immunologic Allergic/Immunologic: Denies urticaria, Denies throat swelling and Denies wheezing Patient History <Lakia Smith PA-C - Last Filed: 07/24/23 11:30> Medical History Healthy adult Surgical History No pertinent past surgical history Social History Smoking Status: Former smoker Smoking Status: Former smoker alcohol intake frequency: a few times a week Substance Use Type: does not use Exam <Lakia Smith PA-C - Last Filed: 07/24/23 11:30> Narrative Exam Narrative: Const General:?cooperative, healthy appearing and comfortable [facility] Head:?normal to inspection Ears:?hearing grossly normal bilaterally Nose:?external nose normal Face and sinus:?normal facial exam and sinuses nontender Mouth:?oral mucosae normal Throat:?posterior oropharynx normal Eyes General:?appearance normal, both eyes and all related structures Neck Neck:?normal visual inspection and no lymphadenopathy noted Resp Effort & Inspection:?normal respiratory effort Auscultation:?clear to auscultation bilaterally Cardio Rate:?regular rate Rhythm:?regular rhythm Neuro General:?patient alert, patient awake and patient oriented x3 Initial Vital Signs Initial Vital Signs: Vital Signs Temperature 97.7 F 07/24/23 10:08 Pulse Rate 88 07/24/23 10:08 Respiratory Rate 20 07/24/23 10:08 Blood Pressure 127/74 07/24/23 10:08 Pulse Oximetry 100 07/24/23 10:08 Oxygen Delivery Method Room Air 07/24/23 10:08 <Ayesha Haney DO - Last Filed: 07/31/23 03:09> Initial Vital Signs Initial Vital Signs: Vital Signs Temperature 97.7 F 07/24/23 10:08 Pulse Rate 88 07/24/23 10:08 Respiratory Rate 20 07/24/23 10:08 Blood Pressure 127/74 07/24/23 10:08 Pulse Oximetry 100 07/24/23 10:08 Oxygen Delivery Method Room Air 07/24/23 10:08 Course <DONNA Siddiqi Last Filed: 07/24/23 11:30> Orders Ordered: ED Orders 07/24/23 10:14 Respiratory Panel (Film Array) Stat 07/24/23 10:18 Chest [XR chest 2V] Stat Vital Signs Vital signs: Vital Signs - 8 hr 07/24/23 10:08 Temperature 97.7 F Pulse Rate 88 Respiratory Rate 20 Blood Pressure 127/74 Pulse Oximetry 100 Oxygen Delivery Method Room Air <DO Cassius Puentes Last Filed: 07/31/23 03:09> Orders Ordered: ED Orders 07/24/23 10:14 Respiratory Panel (Film Array) Stat 07/24/23 10:18 Chest [XR chest 2V] Stat Vital Signs Vital signs: Vital Signs - 8 hr 07/24/23 10:08 Temperature 97.7 F Pulse Rate 88 Respiratory Rate 20 Blood Pressure 127/74 Pulse Oximetry 100 Oxygen Delivery Method Room Air MDM - URI/Sore Throat <DONNA Siddiqi Last Filed: 07/24/23 11:30> Lab Data Labs: Lab Results 07/24/23 Range/Units 10:14 Chlamy pneumoniae PCR Not detected (Not Detect) Adenovirus (PCR) Not detected (Not Detect) B.parapertussis DNA PCR Not detected (Not Detecte) Coronavirus OC43 (PCR) Not detected (Not Detect) Coronavirus HKU1 (PCR) Not detected (Not Detect) Coronavirus 229E (PCR) Not detected (Not Detect) SARS-CoV-2 (PCR) Not detected (Not Detecte) Coronavirus NL63 (PCR) Not detected (Not Detect) Human Metapneumovir PCR Not detected (Not Detect) Influenza Type A (PCR) Not detected (Not Detect) Influenza Type B (PCR) Not detected (Not Detect) M. pneumoniae (PCR) Not detected (Not Detect) Parainfluenza 1 (PCR) Not detected (Not Detect) Parainfluenza 2 (PCR) Not detected (Not Detect) Parainfluenza 3 (PCR) Not detected (Not Detect) Parainfluenza 4 (PCR) Not detected (Not Detect) RSV (PCR) Detected H (Not Detect) Entero/Rhino (PCR) Not detected (Not Detect) MDM Narrative Medical decision making narrative: 33-year-old female with past medical history asthma presents to the ED with 2 weeks of cough and URI symptoms. Concern for viral URI versus pneumonia versus bronchitis versus other. Obtained respiratory swab which was positive for RSV. Chest x-ray was obtained with no acute findings. Recommend continued use of albuterol as needed. Recommend Tessalon Perles for cough. Recommend good hydration. Recommend follow-up with PCP. ED return precautions discussed with patient. Patient verbalized understanding. Medical records reviewed: Yes <Ayesha Haney DO - Last Filed: 07/31/23 03:09> Lab Data Labs: Lab Results 07/24/23 Range/Units 10:14 Chlamy pneumoniae PCR Not detected (Not Detect) Adenovirus (PCR) Not detected (Not Detect) B.parapertussis DNA PCR Not detected (Not Detecte) Coronavirus OC43 (PCR) Not detected (Not Detect) Coronavirus HKU1 (PCR) Not detected (Not Detect) Coronavirus 229E (PCR) Not detected (Not Detect) SARS-CoV-2 (PCR) Not detected (Not Detecte) Coronavirus NL63 (PCR) Not detected (Not Detect) Human Metapneumovir PCR Not detected (Not Detect) Influenza Type A (PCR) Not detected (Not Detect) Influenza Type B (PCR) Not detected (Not Detect) M. pneumoniae (PCR) Not detected (Not Detect) Parainfluenza 1 (PCR) Not detected (Not Detect) Parainfluenza 2 (PCR) Not detected (Not Detect) Parainfluenza 3 (PCR) Not detected (Not Detect) Parainfluenza 4 (PCR) Not detected (Not Detect) RSV (PCR) Detected H (Not Detect) Entero/Rhino (PCR) Not detected (Not Detect) Discharge Plan Departure Patient Disposition: Home Clinical Impression: Respiratory syncytial virus (RSV) Instructions: DI for Respiratory Syncytial Virus -- Adults Activity Restrictions/Additional Instructions: You were evaluated in the ED today for a cough. Your chest x-ray was normal. The respiratory swab was positive for RSV, which is a virus that will run its course over the next several days. You have been prescribed Tessalon Perles for cough. You may continue to use the albuterol inhaler as needed for wheezing. Please continue to stay well hydrated. Please follow-up with your PCP as soon as possible. Return to the ED if you have worsening symptoms, chest pain, shortness of breath. Prescriptions: New benzonatate 200 mg capsule 200 mg PO TID PRN (Reason: cough) Qty: 30 0RF No Action hydrocodone-acetaminophen 5-325 mg tablet 1 tab PO Q6H PRN (Reason: pain) Qty: 7 0RF methylprednisolone [Methylpred DP] 4 mg tablets,dose pack See Rx Instructions .ROUTE .COMPLEX Qty: 21 0RF Rx Instructions: orally per package directions cyclobenzaprine 5 mg tablet 5 mg PO TID PRN (Reason: muscle spasm) Qty: 20 0RF Referrals: ProviderMichael [Primary Care Provider] - Stand Alone Forms: Patient Portal/API, Work Release Note ED Sign-out <Ayesha Haney DO - Last Filed: 07/31/23 03:09> Cosign ED Attending Piedad Attestation: I was available for consultation.
[2023-07-24 11:40] VITALS: BP 131/82; PULSE 83; RESP 20; O2SAT 98
== END 2023-07-24 11:41 | disposition home or self-care (01) ==
PROVIDERS: Emergency Medicine; Emergency Provider Student in an Organized Health Care Education/Training Program
DX: J06.9 Acute upper respiratory infection, unspecified (principal); B97.4 Respiratory syncytial virus as the cause of diseases classified elsewhere; Z20.822 Contact with and (suspected) exposure to COVID-19
CPT/HCPCS: 71046; 87633; 99281; 99283

== ENCOUNTER 2024-07-17 19:36 | Emergency (ER) | payer OTHER, SELFPAY ==
[2024-07-17 19:44] VITALS: BP 119/56; PULSE 66; RESP 16; TEMP 36.6; O2SAT 100; BMI 22.3
--- NOTE | 2024-07-17 22:20 | ED.WOUNDLAC ---
HPI - Wound/Laceration General Chief Complaint: Wound/Laceration Stated Complaint: finger laceration Time Seen by Provider: 07/17/24 21:46 Source: patient Mode of arrival: Ambulatory History of Present Illness HPI narrative: Patient was a 34-year-old female here for evaluation of a cut to her left thumb that occurred earlier this evening while doing cooking. No other injuries from the event. No intervention of the then covering the wound with a bandage prior to arrival. Related Data Previous Rx's Medication Instructions Recorded cyclobenzaprine 5 mg tablet 5 mg PO TID PRN muscle spasm #20 06/15/23 tabs hydrocodone 5 mg-acetaminophen 325 1 tab PO Q6H PRN pain #7 tabs 06/15/23 mg tablet methylprednisolone 4 mg tablets in See Rx Instructions PO .COMPLEX 06/15/23 a dose pack (Methylpred DP) #21 ea benzonatate 200 mg capsule 200 mg PO TID PRN cough #30 caps 07/24/23 Allergies Allergy/AdvReac Type Severity Reaction Status Date / Time duloxetine [From Cymbalta] Allergy Hives Verified 07/17/24 19:44 Review of Systems Musculoskeletal Musculoskeletal: Reports system reviewed and no additional complaints, except as documented Integumentary/Breasts Skin/Breast: Reports system reviewed and no additional complaints, except as documented Patient History Medical History Healthy adult Surgical History No pertinent past surgical history Social History Smoking Status: Former smoker Smoking Status: Former smoker alcohol intake frequency: a few times a week Exam Initial Vital Signs Initial Vital Signs: Vital Signs Temperature 98 F 07/17/24 19:44 Pulse Rate 66 07/17/24 19:44 Respiratory Rate 16 07/17/24 19:44 Blood Pressure 119/56 L 07/17/24 19:44 Pulse Oximetry 100 07/17/24 19:44 Oxygen Delivery Method Room Air 07/17/24 19:44 Skin Other: Superficial laceration to the tip of the left thumb. Approximately 1 cm. Involves the very tip of the nail but not the nail bed. Procedures Laceration Repair Laceration 1: Site: other (Thumb) Side (If applicable): left Size (cm): 1 Description: linear Depth: simple, single layer Skin layer closed with: dermabond Course Vital Signs Vital signs: Vital Signs - 8 hr 07/17/ 19:44 Temperature 98 F Pulse Rate 66 Respiratory Rate 16 Blood Pressure 119/56 L Pulse Oximetry 100 Oxygen Delivery Method Room Air MDM - Wound/Laceration MDM Narrative Medical decision making narrative: Superficial cut to the tip of the left thumb. Neurovascularly intact. No foreign body noted. Was irrigated extensively in the syncope the patient. No signs of infection. Wound was closed with Dermabond. Patient was given care instructions and return precautions. She expressed understanding and agreement with the plan. Discharge Plan Departure Patient Disposition: Home Clinical Impression: Laceration Instructions: DI for Minor Laceration Activity Restrictions/Additional Instructions: The skin glue should start to come off on its own sometimes in the next week. Until then you can wash your hands like normal. Return to emergency department for new or worsening symptoms. Prescriptions: No Action benzonatate 200 mg capsule 200 mg PO TID PRN (Reason: cough) Qty: 30 0RF hydrocodone-acetaminophen 5-325 mg tablet 1 tab PO Q6H PRN (Reason: pain) Qty: 7 0RF methylprednisolone [Methylpred DP] 4 mg tablets,dose pack See Rx Instructions .ROUTE .COMPLEX Qty: 21 0RF Rx Instructions: orally per package directions cyclobenzaprine 5 mg tablet 5 mg PO TID PRN (Reason: muscle spasm) Qty: 20 0RF Referrals: ProviderMichael [Primary Care Provider] - Stand Alone Forms: Patient Portal/API/Survey
== END 2024-07-17 22:44 | disposition home or self-care (01) ==
PROVIDERS: Emergency Provider Emergency Medicine; Family Provider Physical Medicine & Rehabilitation
DX: S61.012A Laceration without foreign body of left thumb without damage to nail, initial encounter (principal); W45.8XXA Other foreign body or object entering through skin, initial encounter; Y93.G3 Activity, cooking and baking
CPT/HCPCS: 12001; 99282